=== PATIENT | male | born 1935 | race Caucasian/White ===

== ENCOUNTER 2019-03-03 16:26 | Emergency (ER) | payer MEDICARE, OTHER ==
[2019-03-03] MEDS ORDERED: Ondansetron ODT 4 MG TAB ONE (16:50)
[2019-03-03 17:06] LABS: #Basophils 0.2 thou/uL (0.0-0.2); #Eosinphils 0.3 thou/uL (0.0-0.7); #Lymphocytes 3.4 thou/uL (1.20-3.40); #Monocytes 0.2 thou/uL (0.11-0.59); #Neutrophils 6.8 thou/uL (1.40-6.50); %Basophils 1.4 % (0.0-1.0); %Eosinophils 2.8 % (0.0-10.0); %Lymphocytes 31.1 % (21.0-51.0); %Monocytes 1.7 % (0.0-10.0); %Neutrophils 62.9 % (42.0-75.0); Hemoglobin 16.8 g/dL (14.0-18.0); Mean Corpuscular HGB CONC 33.8 g/dL (32.0-36.0); Mean Corpuscular Hemoglobin 33.3 pg (27.0-31.0); Mean Corpuscular Volume 98.4 fL (78.0-98.0); Mean Platelet Volume 5.9 fL (7.4-10.4); Platelet Count 201 thou/uL (130-400); RBC Distribution Width 12.7 % (11.5-14.5); Red Blood Cell (RBC) Count 5.05 mill/uL (4.70-6.10); White Blood Cell (WBC) Count 10.8 thou/uL (4.8-10.8)
[2019-03-03 17:10] LABS: PTT 24.7 SEC (22.9-36.1); Prothrombin Time 12.8 SEC (12.0-14.7)
[2019-03-03 17:30] LABS: ALT (SGPT) 15 U/L (8-55); AST (SGOT) 15 U/L (5-34); Albumin 4.1 g/dL (3.4-4.8); Alkaline Phosphatase 102 U/L (40-150); Anion Gap 15 mmol/L (10-20); BUN (Urea Nitrogen) 20 mg/dL (8.4-25.7); Bilirubin, Total 0.8 mg/dL (0.2-1.2); Calc. Creatinine Clearance 0 mL/min (70-130); Calcium 9.9 mg/dL (7.8-10.44); Carbon Dioxide 22 mmol/L (23-31); Chloride 107 mmol/L (98-107); Estimated GFR-MDRD 65; Globulin 3.5 g/dL (2.4-3.5); Glucose 117 mg/dL (83-110); Potassium 4.4 mmol/L (3.5-5.1); Protein, Total 7.6 g/dL (5.8-8.1); Sodium 140 mmol/L (136-145)
--- NOTE | 2019-03-03 17:35 | CT ---
Noncontrast enhanced images abdomen pelvis. Patient with repositioning of Hall catheter with urethral bleeding. [address] images of the pelvis obtained. Vascular calcifications seen in the aorta and iliac arteries. There is an umbilical hernia present. There is a large amount of stool seen in the colon. The urinary bladder contains some gas. Areas of calcified density seen along the dependent portion of the lumen of the bladder. This may represent fragmented and cracked sediments from the previously placed Hall catheter which is now fractured and is in the bladder lumen. The Hall catheter appears to be in the expected position of the urethra however the balloon is insuf flated in the region of the bulbar urethra. Left inguinal hernia is present. IMPRESSION: recently placed Hall catheter appears to be in the region of the bulbar urethra. It cert ainly is not within the urinary bladder. Findings called to Dr. Elizabeth at 5:28 PM on 03/03/2019. Code CR
--- NOTE | 2019-03-04 01:41 | CON ---
DATE OF CONSULTATION: 03/03/2019 CONSULTATION: Emergency Room. CONSULTING PHYSICIAN: Hardeep Lynch MD REASON FOR CONSULTATION: Traumatic Hall with gross hematuria and urinary retention. HISTORY OF PRESENT ILLNESS: Mr. 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 He was undergoing a routine catheter change at his hospice facility. When they were unable to get the catheter back in, it appears that either the balloon was inflated in the urethra or was inflated in the bladder and subsequently got pulled back into the urethra when there was a large amount of blood released. He was taken to the emergency room with the same catheter in place and upon arrival, the bleeding was noted by the ER staff. He was sent for a CT scan, which demonstrated that the catheter was not positioned in the correct location with the balloon of the catheter being in the bulb of the urethra. The balloon was taken down and attempts to advance the catheter into the bladder was attempted, but did not pass into the bladder. As such I have been consulted for further assistance. The patient is an extremely poor historian, does not answer any question. He is relatively nonverbal. Most of the history is obtained from the ER staff. Apparently, the patient's is with him, but is currently not present at the time of visitation with the patient. ALLERGIES: PENICILLIN. HOME MEDICATIONS: 1. Prozac. 2. Ativan. 3. Tylenol. PAST MEDICAL HISTORY: 1. Urinary retention. 2. Dementia. 3. Hypertension. 4. CVA. PAST SURGICAL HISTORY: Cholecystectomy. FAMILY HISTORY: Noncontributory. SOCIAL HISTORY: The patient has no history of alcohol abuse, illicit drug use, or smoking history. REVIEW OF SYSTEMS: A 12-point review of systems cannot be obtained secondary to the patient's nonverbal status. He does not really answer questions appropriately. PHYSICAL EXAMINATION: VITAL SIGNS: Temperature 98.6, pulse 91, respirations 18, blood pressure 175/97, and saturation 98% on room air. Pain 8/10. GENERAL: No apparent distress. Nonverbal. Does not really answer questions appropriately. Pleasantly demented. Appears stated age. HEENT: Normocephalic and atraumatic. Pupils are symmetric and round. Sclerae are nonicteric. Moist mucous membranes. Trachea midline. CARDIOVASCULAR: Regular rate and rhythm. Normal S1 and S2. Symmetric pulses. CHEST: No increased work of breathing. Clear anteriorly. Symmetric expansion of the lungs. ABDOMEN: Soft, nontender, and nondistended. Positive bowel sounds. Mild suprapubic fullness. No rebound, guarding, or peritoneal signs. : There is significant amount of dried blood around the patient's genitals. There is currently no catheter in place. The patient does have erosion of the urethra ventrally secondary to catheter associated traumatic hypospadias creation. Scrotum is mildly edematous with bilateral descended testes. No hydroceles or hernias noted. EXTREMITIES: 1+ edema bilaterally. No clubbing or cyanosis. MUSCULOSKELETAL: No joint deformities or joint erythema noted. Range of motion was not tested. SKIN: Warm and dry. Poor turgor. No rashes or lesions. NEUROLOGIC: Cranial nerves 2 through 12 appear grossly intact. There are no obvious focal or sensory motor deficits identified, although the patient is not following commands, and so neurological exam cannot be fully assessed. PSYCHIATRIC: Alert and oriented x0. PROCEDURE: The patient was prepped in the standard sterile fashion for catheter insertion. An 18-Mongolian coude catheter was inserted gently with tip directed toward the head. The catheter went in easily into the bladder with immediate release of brown-colored urine. This subsequently cleared up to a yellow color, 10 mL of sterile water placed into the balloon and the catheter was affixed with StatLock and left to gravity drainage. Approximately 900 mL were drained. 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 With successful catheter placement in the ER, I would recommend prophylaxis with 7 days of antibiotics to avoid sepsis and the patient's discomfort. Obviously, if Dr. Kay does not feel that antibiotics are warranted due to his hospice status, they can certainly be discontinued at his discretion. From my standpoint, if feasible for the ease of changes in the future and avoidance of urethral injuries again in the future, the patient may be considered for suprapubic catheter placement. This will obviously be depended on his expected prognosis and quality of life in the future. If he does need a suprapubic tube, he can either be referred to Urology or this can also be ordered directly through Interventional Radiology. Alternatively, the patient can keep his indwelling catheter and have it changed by nursing staff in the future, although care should be taken to avoid repeat injury and the balloon should never be inflated unless there is return of urine. From my standpoint, the patient can be discharged home. Job ID: [id number]
== END 2019-03-03 20:05 | disposition home or self-care (01) ==
LOC: ERS 16:26
DX: S37.30XA Unspecified injury of urethra, initial encounter (principal); R11.0 Nausea; I10 Essential (primary) hypertension; E11.9 Type 2 diabetes mellitus without complications; F03.90 Unspecified dementia, unspecified severity, without behavioral disturbance, psychotic disturbance, mood disturbance, and anxiety; Z86.73 Personal history of transient ischemic attack (TIA), and cerebral infarction without residual deficits; Z79.899 Other long term (current) drug therapy; X58.XXXA Exposure to other specified factors, initial encounter
CPT/HCPCS: 36415; 72192; 80053; 85025; 85610; 85730; 96374; Q0162